=== PATIENT | female | born 1940 | race Caucasian/White ===

== ENCOUNTER → 2017-09-30 | Outpatient (CLI) | payer MEDICARE ==
[~2017-09-30] MED LIST: ASPI325; ASPI325 PO; ATOR10 PO; CITA20 PO; CLOP75 PO; FURO20 PO; HYDACE5 PO; Hair, Skin & N1 EACH PO; LEVFLO500 PO; LISI20 PO; LISI5; META800 PO; METO50ER PO; MONT10T; NAPR220; NIFE30ER PO; OMEP10ER; ONDA4ODT MM; OXYACE5T PO; POTCHL10ER PO
== END | disposition home or self-care (01) ==
LOC: LAB EV 18:36 → LAB SHORT 18:36
DX: N39.0 Urinary tract infection, site not specified (principal)
CPT/HCPCS: 87086

== ENCOUNTER → 2018-12-08 | Outpatient (CLI) | payer MEDICARE, OTHER ==
[2018-12-08 17:49] LABS: BASOPHILS ABSOLUTE AUTO 0.06 K/mm3 (0.00-0.23); BASOPHILS PERCENT AUTO 1 % (0-2); EOSINOPHILS ABSOLUTE AUTO 0.01 K/mm3 (0.00-0.68); EOSINOPHILS PERCENT AUTO 0 % (0-6); Hematocrit 42.2 % (33.0-51.0); Hemoglobin 13.6 g/dL (11.5-16.0); IMMATURE GRAN ABSOLUTE AUTO 0.04 K/mm3 (0.00-0.10); IMMATURE GRAN PERCENT AUTO 1 % (0-1); LYMPHOCYTES ABSOLUTE AUTO 2.91 K/mm3 (0.84-5.20); LYMPHOCYTES PERCENT AUTO 44 % (21-46); MONOCYTES PERCENT AUTO 15 % (4-13); Mean Corpuscular HGB 27.2 pg (26.0-34.0); Mean Corpuscular HGB Conc 32.2 g/dL (31.5-36.5); Mean Corpuscular Volume 84 fL (80-100); Mean Platelet Volume 10.6 fL (9.1-12.4); NEUTROPHILS ABSOLUTE AUTO 2.65 K/mm3 (1.96-9.15); NEUTROPHILS PERCENT AUTO 40 % (41-73); Platelet Count 202 K/mm3 (150-400); RDW Standard Deviation 45.4 fL (35.1-46.3); White Blood Cell Count 6.67 K/mm3 (4.00-11.30)
[2018-12-08 19:43] LABS: Anion Gap 9 mmol/L (6-16); Chloride, Blood 105 mmol/L (98-108); Potassium, Blood 3.7 mmol/L (3.5-5.5); Sodium, Blood 140 mmol/L (136-145)
[2018-12-08 20:06] LABS: Alanine Aminotransfer (ALT/SGP 21 U/L (12-78); Albumin, Blood 3.6 g/dL (3.4-5.0); Albumin/Globulin Ratio 0.8 (0.8-1.8); Alk Phos 87 U/L (40-126); Aspartate Aminotrans (AST/SGOT 21 U/L (12-37); Bilirubin, Total 0.4 mg/dL (0.1-1.0); Blood Urea Nitrogen 13 mg/dL (8-24); Bun/Creatinine Ratio 16.9 (12.0-20.0); CO2, Blood 26 mmol/L (21-32); Calcium, Blood 8.7 mg/dL (8.5-10.1); Creatinine, Blood 0.77 mg/dL (0.40-1.00); Globulin, Blood 4.8 g/dL (2.2-4.0); Glomerular Filtration Rate >60 (60-); Glucose, Blood 89 mg/dL (70-99); Thyroid Stimulating Hormone 1.835 uIU/mL (0.360-4.800); Total Protein, Blood 8.4 g/dL (6.4-8.2)
== END | disposition home or self-care (01) ==
LOC: LAB SHORT 17:42 → LAB EV 17:42
PROVIDERS: Physician Assistant Medical
DX: I48.91 Unspecified atrial fibrillation (principal); I10 Essential (primary) hypertension
CPT/HCPCS: 36415; 80053; 84443; 85025

== ENCOUNTER → 2019-07-03 | Outpatient (CLI) | payer MEDICARE, OTHER ==
[2019-07-03 13:43] LABS: BASOPHILS ABSOLUTE AUTO 0.04 K/mm3 (0.00-0.23); BASOPHILS PERCENT AUTO 1 % (0-2); EOSINOPHILS ABSOLUTE AUTO 0.01 K/mm3 (0.00-0.68); EOSINOPHILS PERCENT AUTO 0 % (0-6); Hematocrit 36.3 % (33.0-51.0); Hemoglobin 11.6 g/dL (11.5-16.0); IMMATURE GRAN ABSOLUTE AUTO 0.04 K/mm3 (0.00-0.10); IMMATURE GRAN PERCENT AUTO 1 % (0-1); LYMPHOCYTES ABSOLUTE AUTO 2.97 K/mm3 (0.84-5.20); LYMPHOCYTES PERCENT AUTO 36 % (21-46); MONOCYTES PERCENT AUTO 17 % (4-13); Mean Corpuscular HGB 26.5 pg (26.0-34.0); Mean Corpuscular Volume 83 fL (80-100); Mean Platelet Volume 9.9 fL (9.1-12.4); NEUTROPHILS ABSOLUTE AUTO 3.69 K/mm3 (1.96-9.15); NEUTROPHILS PERCENT AUTO 45 % (41-73); Platelet Count 282 K/mm3 (150-400); RDW Coefficient Variation 13.3 % (11.7-14.2); RDW Standard Deviation 40.2 fL (35.1-46.3); Red Blood Cell Count 4.37 M/mm3 (3.80-5.20); White Blood Cell Count 8.15 K/mm3 (4.00-11.30)
[2019-07-03 14:03] LABS: Alanine Aminotransfer (ALT/SGP 17 U/L (12-78); Albumin, Blood 2.7 g/dL (3.4-5.0); Albumin/Globulin Ratio 0.5 (0.8-1.8); Alk Phos 86 U/L (40-126); Anion Gap 6 mmol/L (6-16); Aspartate Aminotrans (AST/SGOT 15 U/L (12-37); Bilirubin, Total 0.2 mg/dL (0.1-1.0); Blood Urea Nitrogen 19 mg/dL (8-24); CO2, Blood 26 mmol/L (21-32); Calcium, Blood 8.8 mg/dL (8.5-10.1); Chloride, Blood 105 mmol/L (98-108); Creatinine, Blood 0.76 mg/dL (0.40-1.00); Globulin, Blood 5.8 g/dL (2.2-4.0); Glomerular Filtration Rate >60 (60-); Glucose, Blood 92 mg/dL (70-99); Sodium, Blood 137 mmol/L (136-145); Total Protein, Blood 8.5 g/dL (6.4-8.2)
== END | disposition home or self-care (01) ==
LOC: LAB SHORT 13:38 → LAB EV 13:38
PROVIDERS: Physician Assistant
DX: N10 Acute pyelonephritis (principal)
CPT/HCPCS: 80053; 85025; 87077; 87086; 87186

== ENCOUNTER → 2019-10-20 | Outpatient (CLI) | payer MEDICARE, OTHER | END | disposition home or self-care (01) | LOC: PLD 12:19 → LAB SHORT 12:19 | DX: D22.61 Melanocytic nevi of right upper limb, including shoulder (principal) | CPT/HCPCS: 88305 ==

== ENCOUNTER 2020-07-06 21:23 | Emergency (ER) | payer MEDICARE, OTHER ==
[~2020-07-06] VITALS: Ht 160 cm; Wt 72.6 kg
[2020-07-06] MEDS ORDERED: XARELTO20 M1 PO (21:34)
[2020-07-06] MEDS ORDERED: FUROSEMIDE20 MG PO (21:35)
== END 2020-07-07 00:44 | disposition home or self-care (01) ==
LOC: ER 21:23
DX: S40.011A Contusion of right shoulder, initial encounter (principal); I11.0 Hypertensive heart disease with heart failure; I50.9 Heart failure, unspecified; Z88.5 Allergy status to narcotic agent; Z88.2 Allergy status to sulfonamides; Z88.1 Allergy status to other antibiotic agents; Z79.01 Long term (current) use of anticoagulants; W55.12XA Struck by horse, initial encounter
CPT/HCPCS: 70450; 72125; 73030; 73060; 93005; 93010; 99284-25; A9270; L0160

== ENCOUNTER → 2020-11-16 | Outpatient (CLI) | payer MEDICARE, OTHER ==
[~2020-11-16] MED LIST changes: +FUROSEMIDE20 MG PO; +XARELTO20 M1 PO
== END ==
LOC: LAB SHORT 17:58 → LAB 17:58
DX: L08.9 Local infection of the skin and subcutaneous tissue, unspecified (principal); Z88.5 Allergy status to narcotic agent; Z88.2 Allergy status to sulfonamides; Z88.4 Allergy status to anesthetic agent
CPT/HCPCS: 87070; 87147; 87205

== ENCOUNTER → 2020-11-29 | Outpatient (CLI) | payer MEDICARE, OTHER | LOC: LAB SHORT 13:29 → LAB EV 13:29 | DX: L03.90 Cellulitis, unspecified (principal) | CPT/HCPCS: 87070; 87075; 87077; 87186; 87205 ==

== ENCOUNTER 2021-03-03 13:18 | Inpatient (IN) | payer MEDICARE, OTHER ==
[~2021-03-03] VITALS: Ht 170.2 cm; Wt 68.0 kg
[2021-03-03 13:49] LABS: BASOPHILS ABSOLUTE AUTO 0.05 K/mm3 (0.00-0.23); BASOPHILS PERCENT AUTO 1 % (0-2); EOSINOPHILS PERCENT AUTO 0 % (0-6); Hematocrit 41.1 % (33.0-51.0); Hemoglobin 13.2 g/dL (11.5-16.0); IMMATURE GRAN ABSOLUTE AUTO 0.02 K/mm3 (0.00-0.10); IMMATURE GRAN PERCENT AUTO 0 % (0-1); LYMPHOCYTES ABSOLUTE AUTO 2.04 K/mm3 (0.84-5.20); LYMPHOCYTES PERCENT AUTO 27 % (21-46); MONOCYTES ABSOLUTE AUTO 0.93 K/mm3 (0.16-1.47); MONOCYTES PERCENT AUTO 12 % (4-13); Mean Corpuscular HGB 27.5 pg (26.0-34.0); Mean Corpuscular HGB Conc 32.1 g/dL (31.5-36.5); Mean Corpuscular Volume 86 fL (80-100); Mean Platelet Volume 11.2 fL (9.1-12.4); NEUTROPHILS ABSOLUTE AUTO 4.43 K/mm3 (1.96-9.15); NEUTROPHILS PERCENT AUTO 59 % (41-73); Platelet Count 174 K/mm3 (150-400); RDW Coefficient Variation 14.6 % (11.7-14.2); RDW Standard Deviation 46.5 fL (35.1-46.3); White Blood Cell Count 7.47 K/mm3 (4.00-11.30)
[2021-03-03 14:03] LABS: International Normalized Ratio 1.14; Prothrombin Time Results 11.9 Sec (9.7-11.5)
[2021-03-03 14:15] LABS: Alanine Aminotransfer (ALT/SGP 31 U/L (12-78); Albumin, Blood 3.3 g/dL (3.4-5.0); Albumin/Globulin Ratio 0.6 (0.8-1.8); Alk Phos 87 U/L (50-136); Anion Gap 7 mmol/L (6-16); Aspartate Aminotrans (AST/SGOT 31 U/L (12-37); Bilirubin, Total 0.7 mg/dL (0.1-1.0); Blood Urea Nitrogen 11 mg/dL (8-24); Bun/Creatinine Ratio 19.6 (12.0-20.0); CO2, Blood 24 mmol/L (21-32); Chloride, Blood 108 mmol/L (98-108); Creatinine, Blood 0.56 mg/dL (0.40-1.00); Glomerular Filtration Rate >60 (60-); Glucose, Blood 111 mg/dL (70-99); Potassium, Blood 3.5 mmol/L (3.5-5.5); Sodium, Blood 139 mmol/L (136-145); Total Protein, Blood 9.3 g/dL (6.4-8.2)
[2021-03-03 15:37] LABS: SARS-Cov-2 (COVID-19) PCR, MMC NEGATIVE (NEGATIVE)
[2021-03-04 04:59] LABS: BASOPHILS ABSOLUTE AUTO 0.05 K/mm3 (0.00-0.23); BASOPHILS PERCENT AUTO 1 % (0-2); EOSINOPHILS ABSOLUTE AUTO 0.01 K/mm3 (0.00-0.68); EOSINOPHILS PERCENT AUTO 0 % (0-6); Hematocrit 39.7 % (33.0-51.0); Hemoglobin 12.9 g/dL (11.5-16.0); IMMATURE GRAN ABSOLUTE AUTO 0.01 K/mm3 (0.00-0.10); IMMATURE GRAN PERCENT AUTO 0 % (0-1); LYMPHOCYTES ABSOLUTE AUTO 3.06 K/mm3 (0.84-5.20); LYMPHOCYTES PERCENT AUTO 49 % (21-46); MONOCYTES ABSOLUTE AUTO 1.27 K/mm3 (0.16-1.47); MONOCYTES PERCENT AUTO 20 % (4-13); Mean Corpuscular HGB 27.5 pg (26.0-34.0); Mean Corpuscular HGB Conc 32.5 g/dL (31.5-36.5); Mean Corpuscular Volume 85 fL (80-100); Mean Platelet Volume 10.7 fL (9.1-12.4); NEUTROPHILS ABSOLUTE AUTO 1.88 K/mm3 (1.96-9.15); NEUTROPHILS PERCENT AUTO 30 % (41-73); Platelet Count 171 K/mm3 (150-400); RDW Coefficient Variation 14.7 % (11.7-14.2); RDW Standard Deviation 45.1 fL (35.1-46.3); Red Blood Cell Count 4.69 M/mm3 (3.80-5.20); White Blood Cell Count 6.28 K/mm3 (4.00-11.30)
--- NOTE | 2021-03-04 04:59 | NUR ---
ADMISSION/ CONDUIT INSTALLER SUMMARY PATIENT WAS BROUGHT FROM THE ED AT THE BEGINNING OF THE SHIFT. SHE WAS PLACED ON HER BED. ASSESSMENT DONE AND CHARTED ON THE EMR. SHE IS ABLE TO STATE HER NAME WITH A LITTLE DIFFICULTY. SHE IS ALSO ABLE TO ANSWER FEW QUESTIONS. VITALS SIGNS ARE STABLE. NO SKIN BREAKDOWN. WILL CONTINUE TO MONITOR HER.
[2021-03-04 05:31] LABS: Anion Gap 4 mmol/L (6-16); Blood Urea Nitrogen 11 mg/dL (8-24); Bun/Creatinine Ratio 17.2 (12.0-20.0); CO2, Blood 29 mmol/L (21-32); Calcium, Blood 8.8 mg/dL (8.5-10.1); Chloride, Blood 106 mmol/L (98-108); Creatinine, Blood 0.64 mg/dL (0.40-1.00); Glomerular Filtration Rate >60 (60-); Glucose, Blood 81 mg/dL (70-99); Potassium, Blood 3.3 mmol/L (3.5-5.5); Sodium, Blood 139 mmol/L (136-145)
--- NOTE | 2021-03-04 15:50 | NUR ---
SPOKE TO DR. FALCON BY PHONE, REPORTED THAT MRI RESULTS ARE IN FOR HIS REVIEW. RECEIVED PERMISSION TO CHANGE REMAINING IV KCL REPLACEMENT INFUSIONS TO KCL PO. PROVIDER STATED THAT HE WILL LOOK OVER PT'S OUTPT MEDS AND ORDER APPROPRIATE. POSSIBLE D/C HOME TOMOORROW.
--- NOTE | 2021-03-04 15:52 | NUR ---
SUGGESTED TO PT AND DAUGHTER AARON THAT, SINCE PT LIVES ALONE, SHE MAY BENEFIT FROM A [facility] AL[facility] SO THAT SHE CAN [facility] IF NEEDED INSTEAD OF ATTEMPTING TO WALK TO [facility]. DAUGHTER STATED THEY WERE GOING TO LOOK IN TO IT.
--- NOTE | 2021-03-04 18:17 | NUR ---
SHIFT SUMMARY: NO ACUTE EVENTS. C/O HEADACHE EARLY IN THE DAY, MEDICATED WITH TYLENOL WITH ADEQUATE RELIEF. SPEECH IS STILL A BIT SLOW. PHYSICAL THERAPY WORKED WITH PATIENT THIS MORNING; ABLE TO WALK WITH SBA FOR SAFETY. GETTING UP [place] [facility] [place]/C'D WITHOUT INCIDENT. GOOD APPETITE. POTASSIUM REPLACED WITH IV AND PO.
--- NOTE | 2021-03-05 04:33 | NUR ---
SHIFT SUMMARY PATIENT HAD NO ACUTE CHANGES. AXOX 4 AND ABLE TO COMMUNICATE. VSS/AFEBRILE. DENIES PAIN, SOB, AND N/V. PIV REMAINS INTACT. COOPERATIVE WITH CARE. WATCHING TV FIRST PART OF SHIFT. CALL LIGHT IN REACH. BED IN LOWEST POSITION. WILL CONTINUE TO MONITOR UNTIL DAY SHIFT NURSE ASSUMES CARE.
[2021-03-05 05:38] LABS: Anion Gap 1 mmol/L (6-16); Blood Urea Nitrogen 15 mg/dL (8-24); Bun/Creatinine Ratio 20.9 (12.0-20.0); CO2, Blood 30 mmol/L (21-32); Chloride, Blood 108 mmol/L (98-108); Creatinine, Blood 0.72 mg/dL (0.40-1.00); Glomerular Filtration Rate >60 (60-); Glucose, Blood 86 mg/dL (70-99); Magnesium, Blood 2.1 mg/dL (1.6-2.4); Potassium, Blood 4.9 mmol/L (3.5-5.5); Sodium, Blood 139 mmol/L (136-145)
[2021-03-05] MEDS ORDERED: ASPI81CH PO (10:34)
--- NOTE | 2021-03-05 14:44 | NUR ---
PATIENT DISCHARGED TO HOME ACCOMPANIED BY DAUGHTER ROBER. VERBALIZED UNDERSTANDING OF D/C INSTRUCTIONS. IV SALINE LOCKS REMOVED WITHOUT INCIDENT. OFF UNIT VIA W/C AT 1435. NO BELONGINGS LEFT BEHIND IN ROOM.
== END 2021-03-05 14:42 | disposition home or self-care (01) | DRG 66 ==
LOC: ER 13:18 → ERHOLD 13:19 → MEDS 19:45
PROVIDERS: Emergency Medicine; Physician Assistant; ADMIT Internal Medicine
DX: I63.9 Cerebral infarction, unspecified (principal); E87.6 Hypokalemia; R29.810 Facial weakness; R47.01 Aphasia; Z20.822 Contact with and (suspected) exposure to COVID-19; I11.0 Hypertensive heart disease with heart failure; I50.9 Heart failure, unspecified; Z96.651 Presence of right artificial knee joint; M19.90 Unspecified osteoarthritis, unspecified site; E78.5 Hyperlipidemia, unspecified; I48.91 Unspecified atrial fibrillation; Z28.21 Immunization not carried out because of patient refusal; Z98.890 Other specified postprocedural states; Z86.73 Personal history of transient ischemic attack (TIA), and cerebral infarction without residual deficits; Z88.2 Allergy status to sulfonamides; Z88.5 Allergy status to narcotic agent; Z88.8 Allergy status to other drugs, medicaments and biological substances; Z79.01 Long term (current) use of anticoagulants; Z79.899 Other long term (current) drug therapy
CPT/HCPCS: 36415; 51702; 70450; 70496; 70498; 70553; 80048; 80053; 82947; 83735; 85025; 85610; 85730; 93005; 93010; 96374; 96375; 97112; 97162; 99285-25; A9270; A9579; G0378; J2405; J3010; J3480; J7050; Q9967; U0004

== ENCOUNTER 2021-03-06 11:12 | Emergency (ER) | payer MEDICARE, OTHER ==
[~2021-03-06] VITALS: Ht 160 cm; Wt 70.3 kg
[~2021-03-06 11:12] MED LIST changes: +ASPI81CH PO
== END 2021-03-06 15:35 | disposition home or self-care (01) ==
LOC: ER 11:12
DX: G43.909 Migraine, unspecified, not intractable, without status migrainosus (principal); I11.0 Hypertensive heart disease with heart failure; I50.9 Heart failure, unspecified; Z88.5 Allergy status to narcotic agent; Z88.8 Allergy status to other drugs, medicaments and biological substances; Z88.2 Allergy status to sulfonamides; Z79.899 Other long term (current) drug therapy; Z79.01 Long term (current) use of anticoagulants; Z79.82 Long term (current) use of aspirin; Z86.73 Personal history of transient ischemic attack (TIA), and cerebral infarction without residual deficits
CPT/HCPCS: 70450; 93005; 93010; 99284-25

== ENCOUNTER 2021-07-18 22:56 | Emergency (ER) | payer MEDICARE, OTHER ==
[~2021-07-18] VITALS: Ht 157.5 cm; Wt 80.7 kg
== END 2021-07-19 00:23 | disposition home or self-care (01) ==
LOC: ER 22:56
DX: I11.0 Hypertensive heart disease with heart failure (principal); I50.9 Heart failure, unspecified; Z79.899 Other long term (current) drug therapy; Z88.8 Allergy status to other drugs, medicaments and biological substances
CPT/HCPCS: 99283

== ENCOUNTER 2022-01-03 07:31 | Emergency (ER) | payer OTHER, MEDICARE ==
[~2022-01-03] VITALS: Ht 157.5 cm; Wt 70.3 kg
== END 2022-01-03 10:17 | disposition home or self-care (01) ==
LOC: ER 07:31
DX: S00.211A Abrasion of right eyelid and periocular area, initial encounter (principal); S60.221A Contusion of right hand, initial encounter; W01.0XXA Fall on same level from slipping, tripping and stumbling without subsequent striking against object, initial encounter; I11.0 Hypertensive heart disease with heart failure; I50.9 Heart failure, unspecified; Z88.5 Allergy status to narcotic agent; Z88.2 Allergy status to sulfonamides; Z88.1 Allergy status to other antibiotic agents; Z79.899 Other long term (current) drug therapy
CPT/HCPCS: 70450; 73130; 99284-25; A9270

== ENCOUNTER 2022-01-06 06:01 | Emergency (ER) | payer MEDICARE, OTHER ==
[~2022-01-06] VITALS: Ht 157.5 cm; Wt 70.3 kg
[2022-01-06] MEDS ORDERED: ATOR10 (06:43)
[2022-01-06] MEDS ORDERED: NIFE10 (06:44)
[2022-01-06] MEDS ORDERED: DOXY100 PO (11:01)
== END 2022-01-06 11:39 | disposition home or self-care (01) ==
LOC: ER 06:01
DX: S01.101A Unspecified open wound of right eyelid and periocular area, initial encounter (principal); I11.0 Hypertensive heart disease with heart failure; I50.9 Heart failure, unspecified; Z79.899 Other long term (current) drug therapy; Z79.01 Long term (current) use of anticoagulants; W19.XXXA Unspecified fall, initial encounter
CPT/HCPCS: A9270

== ENCOUNTER 2022-01-24 08:11 | Emergency (ER) | payer MEDICARE, OTHER ==
[~2022-01-24] VITALS: Ht 157.5 cm; Wt 68.0 kg
[~2022-01-24 08:11] MED LIST changes: +ATOR10; +DOXY100 PO; +NIFE10
== END 2022-01-24 09:34 | disposition home or self-care (01) ==
LOC: ER 08:11
DX: M79.661 Pain in right lower leg (principal); I11.0 Hypertensive heart disease with heart failure; I50.9 Heart failure, unspecified; Z88.5 Allergy status to narcotic agent; Z88.8 Allergy status to other drugs, medicaments and biological substances; Z86.73 Personal history of transient ischemic attack (TIA), and cerebral infarction without residual deficits; Z96.651 Presence of right artificial knee joint
CPT/HCPCS: 93971; 99283-25

== ENCOUNTER 2022-02-14 06:13 | Emergency (ER) | payer MEDICARE, OTHER ==
[~2022-02-14] VITALS: Ht 165.1 cm; Wt 77.1 kg
== END 2022-02-14 09:17 | disposition home or self-care (01) ==
LOC: ER 06:13
DX: M25.561 Pain in right knee (principal); M25.461 Effusion, right knee; I11.0 Hypertensive heart disease with heart failure; I50.9 Heart failure, unspecified; Z88.5 Allergy status to narcotic agent; Z88.2 Allergy status to sulfonamides; Z88.1 Allergy status to other antibiotic agents; Z79.899 Other long term (current) drug therapy; Z96.651 Presence of right artificial knee joint
CPT/HCPCS: A9270; J1885

== ENCOUNTER 2024-01-20 20:58 | Inpatient (IN) | payer MEDICARE, OTHER ==
[~2024-01-20] VITALS: Ht 157.5 cm; Wt 61.9 kg
[~2024-01-20 20:58] MED LIST changes: +METO100ER PO; +MORP15ER PO; +OXYC5 PO
[2024-01-20 21:22] LABS: Hemoglobin 16.1 g/dL (11.5-16.0); Mean Corpuscular HGB 23.7 pg (26.0-34.0); Mean Corpuscular HGB Conc 32.2 g/dL (31.5-36.5); Mean Corpuscular Volume 74 fL (80-100); Platelet Count 831 K/mm3 (150-400); RDW Coefficient Variation 18.3 % (11.7-14.2); RDW Standard Deviation 44.7 fL (35.1-46.3)
[2024-01-20 21:35] LABS: BAND PERCENT MAN 1 % (0-8); BASOPHILS PERCENT MAN 0 % (0-2); EOSINOPHILS PERCENT MAN 1 % (0-6); LYMPHOCYTES % ATYPICAL MANUAL 1 % (0-0); LYMPHOCYTES PERCENT MAN 10 % (21-46); MONOCYTES PERCENT MAN 9 % (4-13); SEG NEUTROPHILS PERCENT MAN 78 % (41-73); TOTAL CELLS COUNTED 100
[2024-01-20 21:36] LABS: Albumin, Blood 2.7 g/dL (3.4-5.0); Albumin/Globulin Ratio 0.8 (0.8-1.8); BASOPHILS ABSOLUTE AUTO 0.17 K/mm3 (0.00-0.23); BASOPHILS PERCENT AUTO 1 % (0-2); Bilirubin, Total 0.7 mg/dL (0.1-1.0); Bun/Creatinine Ratio 22.3 (12.0-20.0); Calcium, Blood 8.9 mg/dL (8.5-10.1); Creatinine, Blood 0.54 mg/dL (0.40-1.00); EOSINOPHILS ABSOLUTE AUTO 0.26 K/mm3 (0.00-0.68); EOSINOPHILS PERCENT AUTO 1 % (0-6); Globulin, Blood 3.5 g/dL (2.2-4.0); IMMATURE GRAN ABSOLUTE AUTO 0.37 K/mm3 (0.00-0.10); IMMATURE GRAN PERCENT AUTO 2 % (0-1); LYMPHOCYTES ABSOLUTE AUTO 1.45 K/mm3 (0.84-5.20); LYMPHOCYTES PERCENT AUTO 7 % (21-46); MONOCYTES ABSOLUTE AUTO 1.18 K/mm3 (0.16-1.47); MONOCYTES PERCENT AUTO 6 % (4-13); NEUTROPHILS ABSOLUTE AUTO 16.77 K/mm3 (1.96-9.15); NEUTROPHILS ABSOLUTE MAN 15.95 K/mm3 (1.96-9.15); NEUTROPHILS PERCENT AUTO 83 % (41-73); Total Protein, Blood 6.2 g/dL (6.4-8.2)
[2024-01-20] MEDS ORDERED: Piperacillin/Tazobactam Sod 3.375 GM in NS 100 ML IV ONE (22:45)
[2024-01-20] MEDS ORDERED: Vancomycin HCL 2,000 MG in NS 520 ML IV ONE (22:45)
[2024-01-20] MEDS ORDERED: NS 1,000 ML IV SCH ×2 (22:45→23:55)
[2024-01-20 23:39] LABS: Source, Urine Clean Catch
[2024-01-20 23:41] LABS: Bilirubin, Urine Neg (Neg); Blood, Urine Neg (Neg); Glucose Qualitative, Urine Neg (Neg); Ketones, Urine Neg (Neg); Leukocyte Esterase, Urine Neg (Neg); Nitrite, Urine Neg (Neg); Protein, Urine Neg (Neg); Urobilinogen, Urine NORM (Normal)
[2024-01-20 23:45] LABS: Appearance, Urine Clear (Clear); Color, Urine Yellow (P-Yellow)
[2024-01-21] MEDS ORDERED: ADALAT CC30 M1 PO (01:39)
[2024-01-21] MEDS ORDERED: Metoprolol Succinate 50 MG TABCR PO SCH (01:43)
[2024-01-21] MEDS ORDERED: FLU VACC TS2024-25(6MOS UP)/PF 45 MCG/0.5 ML SYRINGE IM ONE (01:45)
[2024-01-21] MEDS ORDERED: Magnesium Hydroxide Conc 10 ML UDC PO PRN (01:45)
[2024-01-21] MEDS ORDERED: Acetaminophen 325 MG TABLET PO PRN (01:50)
[2024-01-21] MEDS ORDERED: Bisacodyl 10 MG Supp PR PRN (01:50)
[2024-01-21 03:27] VITALS: BP 153/76
[2024-01-21] MEDS ORDERED: Metoprolol Tartrate 1 MG/ML 5 ML VIAL IV PRN (04:25)
[2024-01-21] MEDS ORDERED: Ondansetron 4 MG SoluTab MM PRN (04:25)
--- NOTE | 2024-01-21 04:45 | NUR ---
SUMMARY- PT ARRIVED TO ROOM NAUSEATED. PT FOUND TO HAVE A PULSE RATE REACHING 130'S. PROVIDER CALLED AND HE STATES HE WILL ADD ORDERS. ZOFRAN AND PRN LOPRESSOR WAS ORDERED. PT NAUSEA RESOLVED ON OWN. HRT RATE ON TELE A-FIB @ 98. PT AOX3-4 WITH SOME FORGETFULNESS. PT REPORTS DISCOMFORT IN BLE DUE TO NEUROPATHY. PT 1-2 PERSON ASSIST W/ GB AND FWW. PT WOULD BENEIFIT FROM [facility] FOR GROIN/ JOANNE AREA. NO PRESSURE INJURIES OR REDNESS ON COCCYX. CALL LIGHT IN REACH AND BED ALARM ON FOR SAFETY.
[2024-01-21 06:16] LABS: Hematocrit 47.1 % (33.0-51.0); Hemoglobin 15.3 g/dL (11.5-16.0); Mean Corpuscular HGB Conc 32.5 g/dL (31.5-36.5); Mean Corpuscular Volume 74 fL (80-100); Mean Platelet Volume 11.3 fL (9.1-12.4); Platelet Count 799 K/mm3 (150-400); RDW Coefficient Variation 18.6 % (11.7-14.2); RDW Standard Deviation 44.6 fL (35.1-46.3); Red Blood Cell Count 6.38 M/mm3 (3.80-5.20)
[2024-01-21 06:17] LABS: White Blood Cell Count 22.62 K/mm3 (4.00-11.30)
[2024-01-21 06:25] LABS: BAND PERCENT MAN 7 % (0-8); BASOPHILS ABSOLUTE MAN 0.22 K/mm3 (0.00-0.23); BASOPHILS PERCENT MAN 1 % (0-2); EOSINOPHILS PERCENT MAN 0 % (0-6); LYMPHOCYTES ABSOLUTE MAN 1.35 K/mm3 (0.84-5.20); LYMPHOCYTES PERCENT MAN 6 % (21-46); MONOCYTES ABSOLUTE MAN 1.58 K/mm3 (0.16-1.47); MONOCYTES PERCENT MAN 7 % (4-13); NEUTROPHILS ABSOLUTE MAN 19.45 K/mm3 (1.96-9.15); SEG NEUTROPHILS PERCENT MAN 79 % (41-73); TOTAL CELLS COUNTED 100
[2024-01-21 06:51] LABS: Albumin, Blood 2.6 g/dL (3.4-5.0); Anion Gap 12 mmol/L (3-11); Blood Urea Nitrogen 10 mg/dL (8-24); Bun/Creatinine Ratio 19.8 (12.0-20.0); CO2, Blood 22 mmol/L (21-32); Calcium, Blood 8.6 mg/dL (8.5-10.1); Chloride, Blood 109 mmol/L (98-108); Creatinine, Blood 0.51 mg/dL (0.40-1.00); Glomerular Filtration Rate 93 (60-); Glucose, Blood 115 mg/dL (70-99); Phosphorus, Blood 2.3 mg/dL (2.5-4.9); Potassium, Blood 3.4 mmol/L (3.5-5.5); Sodium, Blood 140 mmol/L (136-145)
[2024-01-21 07:48] VITALS: BP 145/73
[2024-01-21] MEDS ORDERED: Multivitamins/Minerals TAB PO SCH (09:00)
[2024-01-21] MEDS ORDERED: Sennosides 8.6 MG Tab PO SCH (09:00)
[2024-01-21] MEDS ORDERED: Rivaroxaban 10 MG Tab PO SCH (09:00)
[2024-01-21] MEDS ORDERED: Docusate Sodium 100 MG Cap PO SCH (09:00)
[2024-01-21] MEDS ORDERED: Aspirin 81 MG TabEC PO SCH (09:00)
[2024-01-21] MEDS ORDERED: Lisinopril 20 MG Tab PO SCH (09:00)
[2024-01-21] MEDS ORDERED: Lactobacil 2-S.Thermo-Bifido 1 1 Cap PO SCH (09:00)
[2024-01-21] MEDS ORDERED: Furosemide 20 MG Tab PO SCH (09:00)
[2024-01-21] MEDS ORDERED: NIFEdipine 30 MG TabCR PO SCH (09:00)
[2024-01-21] MEDS ORDERED: Ondansetron Odt8 MG MM (15:03)
[2024-01-21] MEDS ORDERED: DEXA4 PO (15:06)
[2024-01-21 15:35] VITALS: BP 110/65
--- NOTE | 2024-01-21 16:52 | NUR ---
VSS, A-Ox2-3 confused at times and disoriented to time and place, denies SOB, states 8 out of 10 pain that was well managed with prn tylenol, ambulates with 1x assist and walker, on RA. Lungs clear, heart regular, bowel sounds normative, contentint of urine. Pt can make some needs known, call ware in hand, bed in lowest position.
[2024-01-21 19:46] VITALS: BP 113/62
[2024-01-21] MEDS ORDERED: Miconazole Nitrate 2% 85 GM PWD TOP SCH (21:00)
[2024-01-21] MEDS ORDERED: Atorvastatin 40 MG Tab PO SCH (21:00)
[2024-01-21 21:30] LABS: Source, Urine Clean Catch
[2024-01-21 21:35] LABS: Bilirubin, Urine Neg (Neg); Blood, Urine 1+ (Neg); Glucose Qualitative, Urine Neg (Neg); Ketones, Urine Neg (Neg); Leukocyte Esterase, Urine 3+ (Neg); Nitrite, Urine Neg (Neg); Protein, Urine 1+ (Neg); Specific Gravity, Urine 1.015 (1.003-1.022); Urobilinogen, Urine NORM (Normal)
[2024-01-21 21:43] LABS: Appearance, Urine Clear (Clear); Bacteria Mod /hpf; Color, Urine Yellow (P-Yellow); Red Blood Cells, Urine 0-2 /hpf (0-2); Squamous Epithelial Cells Not Seen /hpf (Few)
[2024-01-22 03:43] VITALS: BP 133/81
--- NOTE | 2024-01-22 05:30 | NUR ---
sUMMARY- PT REMAINS FORGETFUL AT TIMES BUT REORIENTS EASILY. PT UP TO BEDSIDE COMMODE FOR TOILETING. PT UA SENT TO LAB. PT HAS RESTED WITHOUT MATTHEW. PT CURRENTLY SLEEPING AND BREATHING EASY. CALL LIGHT IN REACH AND BED ALARM ON.
[2024-01-22 06:06] LABS: Hematocrit 46.9 % (33.0-51.0); Hemoglobin 14.9 g/dL (11.5-16.0); Mean Corpuscular HGB 23.4 pg (26.0-34.0); Mean Corpuscular HGB Conc 31.8 g/dL (31.5-36.5); Mean Corpuscular Volume 74 fL (80-100); Mean Platelet Volume 11.5 fL (9.1-12.4); Platelet Count 790 K/mm3 (150-400); RDW Coefficient Variation 18.3 % (11.7-14.2); RDW Standard Deviation 45.3 fL (35.1-46.3); Red Blood Cell Count 6.36 M/mm3 (3.80-5.20)
[2024-01-22 06:07] LABS: White Blood Cell Count 17.38 K/mm3 (4.00-11.30)
[2024-01-22 06:32] LABS: Albumin, Blood 2.4 g/dL (3.4-5.0); Albumin/Globulin Ratio 0.8 (0.8-1.8); Bilirubin, Total 0.6 mg/dL (0.1-1.0); Bun/Creatinine Ratio 22.1 (12.0-20.0); Calcium, Blood 8.5 mg/dL (8.5-10.1); Creatinine, Blood 0.5 mg/dL (0.40-1.00); Globulin, Blood 3.2 g/dL (2.2-4.0); Potassium, Blood 3.5 mmol/L (3.5-5.5); Total Protein, Blood 5.6 g/dL (6.4-8.2)
[2024-01-22 06:41] LABS: BAND PERCENT MAN 9 % (0-8); BASOPHILS ABSOLUTE MAN 0.17 K/mm3 (0.00-0.23); BASOPHILS PERCENT MAN 1 % (0-2); EOSINOPHILS ABSOLUTE MAN 0.34 K/mm3 (0.00-0.68); EOSINOPHILS PERCENT MAN 2 % (0-6); LYMPHOCYTES ABSOLUTE MAN 2.25 K/mm3 (0.84-5.20); LYMPHOCYTES PERCENT MAN 13 % (21-46); MONOCYTES ABSOLUTE MAN 1.04 K/mm3 (0.16-1.47); MONOCYTES PERCENT MAN 6 % (4-13); NEUTROPHILS ABSOLUTE MAN 13.55 K/mm3 (1.96-9.15); SEG NEUTROPHILS PERCENT MAN 69 % (41-73); TOTAL CELLS COUNTED 100
[2024-01-22 07:24] VITALS: BP 132/78
[2024-01-22] MEDS ORDERED: CefTRIAXone Sodium 1,000 MG in NS 100 ML IV SCH (14:14)
[2024-01-22 16:10] VITALS: BP 101/89
--- NOTE | 2024-01-22 18:34 | NUR ---
VSS, A-Ox2-4 intermentintly confused and disorient to place and situation, denies SOB, denies any pain, ambulates with SB assist and walker, on RA. Lung diminished, heart regular, bowel sounds normative, pt can be impulisive at times, bed alarm on at all times, can be incontient at times. Pt can make some needs known, call ware in hand, bed in lowest position.
[2024-01-22 20:08] VITALS: BP 129/75
[2024-01-23 03:49] VITALS: BP 150/88
--- NOTE | 2024-01-23 03:55 | NUR ---
PATIENTS TEMPORAL TEMPERATURE WAS 101.1 AT 0349-ORAL TEMPERATURE TAKEN AND TEMPERATURE IS 98.1. PATIENT IS WARM/COOL TO TOUCH. PATIENT IS AFEBRILE.
--- NOTE | 2024-01-23 04:08 | NUR ---
SHIFT SUMMARY. NO ACUTE CHANGES. PATIENT IS A/OX3-4 WITH CONFUSION. PATIENT IS ABLE TO MAKE HER NEEDS KNOWN. PATIENT CALLED APPROPRIATELY T/O NIGHT. BED EXIT ALARM IS ON FOR PATIENT SAFETY. PATIENT RESTED T/O NIGHT WITH RESPIRATIONS EQUAL AND UNLABORED. PATIENT HAD 2 BM'S THIS SHIFT. PATIENT IS PLEASANT AND COOPERATIVE WITH CARE. PATIENT REPORTS BLE NEUROPATHY FROM CHEMOTHERAPY THAT IS PAINFUL-PATIENT DENIED NEED FOR PAIN INTERVENTIONS. BED IS LOCKED IN THE LOWEST POSITION WITH CALL LIGHT IN REACH. CARE IS ONGOING.
[2024-01-23 05:39] LABS: Hematocrit 47.8 % (33.0-51.0); Hemoglobin 15.5 g/dL (11.5-16.0); Mean Corpuscular HGB 23.7 pg (26.0-34.0); Mean Corpuscular HGB Conc 32.4 g/dL (31.5-36.5); Mean Corpuscular Volume 73 fL (80-100); Mean Platelet Volume 11.1 fL (9.1-12.4); Platelet Count 741 K/mm3 (150-400); RDW Coefficient Variation 18.6 % (11.7-14.2); RDW Standard Deviation 44.7 fL (35.1-46.3); Red Blood Cell Count 6.54 M/mm3 (3.80-5.20)
[2024-01-23 05:50] LABS: Albumin, Blood 2.5 g/dL (3.4-5.0); Albumin/Globulin Ratio 0.7 (0.8-1.8); Bilirubin, Total 0.7 mg/dL (0.1-1.0); Bun/Creatinine Ratio 21.5 (12.0-20.0); Calcium, Blood 8.7 mg/dL (8.5-10.1); Creatinine, Blood 0.47 mg/dL (0.40-1.00); Globulin, Blood 3.5 g/dL (2.2-4.0); Potassium, Blood 3.2 mmol/L (3.5-5.5)
[2024-01-23 05:51] LABS: BASOPHILS ABSOLUTE MAN 0.17 K/mm3 (0.00-0.23); BASOPHILS PERCENT MAN 1 % (0-2); EOSINOPHILS ABSOLUTE MAN 0.35 K/mm3 (0.00-0.68); EOSINOPHILS PERCENT MAN 2 % (0-6); LYMPHOCYTES ABSOLUTE MAN 1.78 K/mm3 (0.84-5.20); LYMPHOCYTES PERCENT MAN 10 % (21-46); MONOCYTES ABSOLUTE MAN 0.89 K/mm3 (0.16-1.47); MONOCYTES PERCENT MAN 5 % (4-13); NEUTROPHILS ABSOLUTE MAN 14.59 K/mm3 (1.96-9.15); SEG NEUTROPHILS PERCENT MAN 82 % (41-73); TOTAL CELLS COUNTED 100
[2024-01-23 07:04] VITALS: BP 148/80
[2024-01-23] MEDS ORDERED: Rivaroxaban 10 MG Tab PO SCH (09:00)
[2024-01-23 14:33] VITALS: BP 132/81
[2024-01-23 19:08] VITALS: BP 135/71
[2024-01-24 03:43] VITALS: BP 144/88
--- NOTE | 2024-01-24 04:13 | NUR ---
SHIFT SUMMARY. NO ACUTE CHANGES. PATIENT IS A&OX4. PATIENT IS PLEASANT AND COOPERATIVE WITH CARE. PATIENT HAS TELE ON WITH LEADS IN PLACE-NO EVENTS NOTED THIS SHIFT AT THIS TIME. PATIENT WATCHINH TV AT BEGINNING OF SHIFT. PATIENT RESTING OFF AND ON T/O SHIFT WITH RESPIRATIONS EQUAL AND UNLABORED. BED IS LOCKED IN THE LOWEST POSITION [facility] CALL LIGHT IN REACH. CARE IS ONGOING.
[2024-01-24 06:49] LABS: Hematocrit 49.2 % (33.0-51.0); Hemoglobin 15.9 g/dL (11.5-16.0); Mean Corpuscular HGB 23.5 pg (26.0-34.0); Mean Corpuscular HGB Conc 32.3 g/dL (31.5-36.5); Mean Corpuscular Volume 73 fL (80-100); Mean Platelet Volume 11.3 fL (9.1-12.4); Platelet Count 739 K/mm3 (150-400); RDW Coefficient Variation 18.6 % (11.7-14.2); RDW Standard Deviation 43.6 fL (35.1-46.3); Red Blood Cell Count 6.78 M/mm3 (3.80-5.20); White Blood Cell Count 17.61 K/mm3 (4.00-11.30)
[2024-01-24 07:03] VITALS: BP 139/71
[2024-01-24 07:08] LABS: BASOPHILS ABSOLUTE MAN 0.17 K/mm3 (0.00-0.23); BASOPHILS PERCENT MAN 1 % (0-2); EOSINOPHILS ABSOLUTE MAN 0.52 K/mm3 (0.00-0.68); EOSINOPHILS PERCENT MAN 3 % (0-6); LYMPHOCYTES PERCENT MAN 8 % (21-46); MONOCYTES ABSOLUTE MAN 0.88 K/mm3 (0.16-1.47); MONOCYTES PERCENT MAN 5 % (4-13); NEUTROPHILS ABSOLUTE MAN 14.61 K/mm3 (1.96-9.15); SEG NEUTROPHILS PERCENT MAN 83 % (41-73); TOTAL CELLS COUNTED 100
[2024-01-24 07:15] LABS: Albumin, Blood 2.4 g/dL (3.4-5.0); Albumin/Globulin Ratio 0.7 (0.8-1.8); Bilirubin, Total 0.7 mg/dL (0.1-1.0); Bun/Creatinine Ratio 21.3 (12.0-20.0); Calcium, Blood 8.7 mg/dL (8.5-10.1); Creatinine, Blood 0.47 mg/dL (0.40-1.00); Globulin, Blood 3.5 g/dL (2.2-4.0); Potassium, Blood 3.2 mmol/L (3.5-5.5); Total Protein, Blood 5.9 g/dL (6.4-8.2)
[2024-01-24] MEDS ORDERED: Potassium Chloride 20 MEQ TabCR PO ONE (09:15)
[2024-01-24] MEDS ORDERED: NS 250 ML IV PRN (09:55)
[2024-01-24 14:34] VITALS: BP 112/57
--- NOTE | 2024-01-24 18:13 | NUR ---
SHIFT SUMMARY PT A&OX4 W/ NO EPSIODES OF CONFUSION, VSS, AMB W/ SBA, TOLERATING PO, VOIDING, AND PAIN MANAGED PER EMAR. K LAB 3.2 THIS AM AND ORAL K GIVEN. PT ENCOURAGED TO AMB AND WORKED W/ PHYSICAL THERAPY THIS SHIFT, SEE THERAPY NOTE. CHEST XRAY COMPLETED, SEE IMAGING. NO OTHER ACUTE CHANGES. CALL LIGHT WITHIN REACH AND PT ABLE TO MAKE NEEDS KNOWN.
[2024-01-24 19:49] VITALS: BP 132/84
[2024-01-25 02:38] VITALS: BP 135/79
--- NOTE | 2024-01-25 04:34 | NUR ---
SHIFT SUMMARY. NO ACUTE CHANGES. PATIENT A&OX4-PATIENT CALLS APPRORPRIATELY AND IS ABLE TO MAKE HIS NEEDS KNOWN. PATIENT MAKES HER NEEDS KNOWN. PATIENT RESTING OFF AND ON T/O SHIFT WITH RESPIRATIONS EQUAL AND UNLABORED. PATIENT HAS TELE ON WITH LEADS IN PLACE-NO EVENTS NOTED AT THIS TIME. PATIENT IS HOPING TO DISCHARGE HOME SOON-PATIENT WOULD LIKE TO GO HOME 01/25/24 OR "BEFORE THE 15 BECAUSE I HAVE CHEMOTHERAPY". BED IS LOCKED IN THE LOWEST POSITION WITH CALL LIGHT IN REACH. CARE IS ONGOING.
[2024-01-25 06:33] LABS: Hematocrit 48.7 % (33.0-51.0); Hemoglobin 15.5 g/dL (11.5-16.0); Mean Corpuscular HGB Conc 31.8 g/dL (31.5-36.5); Mean Corpuscular Volume 72 fL (80-100); Mean Platelet Volume 11.3 fL (9.1-12.4); Platelet Count 737 K/mm3 (150-400); RDW Coefficient Variation 18.5 % (11.7-14.2); RDW Standard Deviation 44.1 fL (35.1-46.3); Red Blood Cell Count 6.73 M/mm3 (3.80-5.20)
[2024-01-25 06:35] LABS: White Blood Cell Count 14.06 K/mm3 (4.00-11.30)
[2024-01-25 06:50] LABS: BAND PERCENT MAN 1 % (0-8); BASOPHILS ABSOLUTE MAN 0.56 K/mm3 (0.00-0.23); BASOPHILS PERCENT MAN 4 % (0-2); EOSINOPHILS ABSOLUTE MAN 0.28 K/mm3 (0.00-0.68); EOSINOPHILS PERCENT MAN 2 % (0-6); LYMPHOCYTES % ATYPICAL MANUAL 1 % (0-0); LYMPHOCYTES ABSOLUTE MAN 2.24 K/mm3 (0.84-5.20); LYMPHOCYTES PERCENT MAN 15 % (21-46); MONOCYTES ABSOLUTE MAN 0.98 K/mm3 (0.16-1.47); MONOCYTES PERCENT MAN 7 % (4-13); MYELOCYTE ABSOLUTE MAN 0.14 K/mm3 (0.00-0.00); MYELOCYTE PERCENT MAN 1 % (0-0); NEUTROPHILS ABSOLUTE MAN 9.84 K/mm3 (1.96-9.15); SEG NEUTROPHILS PERCENT MAN 69 % (41-73); TOTAL CELLS COUNTED 100
[2024-01-25 07:06] LABS: Bun/Creatinine Ratio 22.8 (12.0-20.0); Calcium, Blood 8.6 mg/dL (8.5-10.1); Creatinine, Blood 0.53 mg/dL (0.40-1.00); Potassium, Blood 3.3 mmol/L (3.5-5.5)
[2024-01-25 07:09] VITALS: BP 126/78
[2024-01-25] MEDS ORDERED: Potassium Chloride 20 MEQ TabCR PO ONE (08:35)
[2024-01-25] MEDS ORDERED: Rivaroxaban 10 MG Tab PO SCH (09:00)
[2024-01-25 14:02] VITALS: BP 141/84
--- NOTE | 2024-01-25 18:17 | NUR ---
SHIFT SUMMARY PT HAD INTERMITTENT CONFUSION T/O SHIFT THAT REQUIRED REORIENTATION, BUT EASILY REDIRECTABLE. NO OTHER ACUTE CHANGES. CALL LIGHT WITHIN REACH AND PT ABLE TO MAKE NEEDS KNOWN.
[2024-01-25 19:17] VITALS: BP 115/79
[2024-01-26 03:49] VITALS: BP 124/73
--- NOTE | 2024-01-26 04:35 | NUR ---
SHIFT SUMMARY SLEPT IN LONG INTERVALS TONIGHT. DID NOT REQUIRE ANY PRN MEDS. LOW GRADE TEMP. TELE A FLUTTER 90-100, WITH SHORT RUNS TO 150'S
[2024-01-26 05:43] LABS: Hematocrit 47.8 % (33.0-51.0); Mean Corpuscular HGB Conc 31.4 g/dL (31.5-36.5); Mean Corpuscular Volume 73 fL (80-100); Mean Platelet Volume 11.4 fL (9.1-12.4); Platelet Count 785 K/mm3 (150-400); RDW Coefficient Variation 18.3 % (11.7-14.2); RDW Standard Deviation 45.1 fL (35.1-46.3); Red Blood Cell Count 6.51 M/mm3 (3.80-5.20)
[2024-01-26 05:44] LABS: White Blood Cell Count 15.72 K/mm3 (4.00-11.30)
[2024-01-26 06:16] LABS: BAND PERCENT MAN 5 % (0-8); BASOPHILS PERCENT MAN 0 % (0-2); EOSINOPHILS ABSOLUTE MAN 0.31 K/mm3 (0.00-0.68); EOSINOPHILS PERCENT MAN 2 % (0-6); LYMPHOCYTES % ATYPICAL MANUAL 1 % (0-0); LYMPHOCYTES ABSOLUTE MAN 1.57 K/mm3 (0.84-5.20); LYMPHOCYTES PERCENT MAN 9 % (21-46); MONOCYTES ABSOLUTE MAN 0.15 K/mm3 (0.16-1.47); MONOCYTES PERCENT MAN 1 % (4-13); MYELOCYTE ABSOLUTE MAN 0.31 K/mm3 (0.00-0.00); MYELOCYTE PERCENT MAN 2 % (0-0); NEUTROPHILS ABSOLUTE MAN 13.36 K/mm3 (1.96-9.15); SEG NEUTROPHILS PERCENT MAN 80 % (41-73); TOTAL CELLS COUNTED 100
[2024-01-26 06:30] LABS: Bun/Creatinine Ratio 26.9 (12.0-20.0); Calcium, Blood 8.7 mg/dL (8.5-10.1); Creatinine, Blood 0.48 mg/dL (0.40-1.00); Potassium, Blood 3.9 mmol/L (3.5-5.5)
[2024-01-26 07:36] VITALS: BP 127/89
--- NOTE | 2024-01-26 07:48 | NUR ---
PT O2 SAT 85% ON RA DURING AM VITALS. PT C/O SOB AND WAS ENCOURAGED TO DEEP BREATHE AND THE HOB WAS PLACED UP. PT PUT ON 3L O2 NC TO MAINTAIN O2 SATS OVER 90%. PT CURRENTLY 93% AND SOB IMPROVED.
[2024-01-26] MEDS ORDERED: Furosemide 10 MG/ML 4ML Vial IV SCH (11:00)
[2024-01-26 11:31] VITALS: BP 130/80
[2024-01-26 14:14] VITALS: BP 138/71
--- NOTE | 2024-01-26 17:41 | NUR ---
SHIFT SUMMARY PT A&OX4 W/ CONT CONFUSION AT TIMES. PT ON 1L O2 NC TO MAINTAIN SATS. NO OTHER ACUTE CHANGES. CALL LIGHT WITHIN REACH AND PT ABLE TO MAKE NEEDS KNOWN.
--- NOTE | 2024-01-26 18:40 | NUR ---
THIS NURSE AMB W/ PT TO THE HALLWAY FROM HER ROOM. PT DID NOT TOLERATE IT WELL. PT ASSISTED BACK TO BED W/ HOB AND BLE'S ELEVATED ON PILLOWS. CALL LIGHT PLACED WITHIN REACH.
[2024-01-26 19:36] VITALS: BP 119/69
[2024-01-27 03:46] VITALS: BP 138/88
--- NOTE | 2024-01-27 04:58 | NUR ---
SHIFT SUMMARY SLEPT IN LONG INTERVALS GIVEN TYLENOL FOR LOW GRADE TEMP.UP TO BSC WITH 2 ASSIST, VERY WEAK AND DECONTIONED. TELE AF 80.
[2024-01-27 06:09] LABS: Hematocrit 51.2 % (33.0-51.0); Mean Corpuscular HGB Conc 31.3 g/dL (31.5-36.5); Mean Corpuscular Volume 74 fL (80-100); Mean Platelet Volume 11.1 fL (9.1-12.4); Platelet Count 799 K/mm3 (150-400); RDW Coefficient Variation 18.6 % (11.7-14.2); RDW Standard Deviation 45.1 fL (35.1-46.3); Red Blood Cell Count 6.96 M/mm3 (3.80-5.20)
[2024-01-27 06:26] LABS: Bun/Creatinine Ratio 31.1 (12.0-20.0); Calcium, Blood 8.9 mg/dL (8.5-10.1); Creatinine, Blood 0.52 mg/dL (0.40-1.00); Potassium, Blood 4.1 mmol/L (3.5-5.5)
[2024-01-27 06:35] LABS: White Blood Cell Count 20.54 K/mm3 (4.00-11.30)
[2024-01-27 06:36] LABS: BAND PERCENT MAN 4 % (0-8); BASOPHILS ABSOLUTE MAN 0.41 K/mm3 (0.00-0.23); BASOPHILS PERCENT MAN 2 % (0-2); EOSINOPHILS ABSOLUTE MAN 0.82 K/mm3 (0.00-0.68); EOSINOPHILS PERCENT MAN 4 % (0-6); LYMPHOCYTES ABSOLUTE MAN 1.43 K/mm3 (0.84-5.20); LYMPHOCYTES PERCENT MAN 7 % (21-46); MONOCYTES ABSOLUTE MAN 0.82 K/mm3 (0.16-1.47); MONOCYTES PERCENT MAN 4 % (4-13); MYELOCYTE PERCENT MAN 1 % (0-0); NEUTROPHILS ABSOLUTE MAN 16.84 K/mm3 (1.96-9.15); SEG NEUTROPHILS PERCENT MAN 78 % (41-73); TOTAL CELLS COUNTED 100
[2024-01-27 07:18] VITALS: BP 136/71
[2024-01-27] MEDS ORDERED: Gabapentin 100 MG Cap PO SCH ×2 (12:00→21:00)
[2024-01-27] MEDS ORDERED: Piperacillin/Tazobactam Sod 2.25 GM in NS 50 ML IV SCH (12:00)
[2024-01-27 16:14] VITALS: BP 120/74
--- NOTE | 2024-01-27 18:01 | NUR ---
PT PLEASANT AND COOP TODAY. NEW ABX STARTED TODAY. DID C/O LEG PAIN THIS AM. MISSING GABAPENTIN. FAMILY BROUGHT IN HOME MED FOR DOSE. APPROVED. NOW ON EMAR. CONTINUES IN AFIB. NO NEW CONCERNS NOTED TODAY. BED IN LOW POSITION, CALL LITE IN REACH, CALLS APPROP
[2024-01-27 19:26] VITALS: BP 118/63
[2024-01-28 04:01] VITALS: BP 120/74
--- NOTE | 2024-01-28 05:18 | NUR ---
SHIFT SUMMARY PATIENT SLET IN LONG INTERVALS. SHE BROKE OUT INTO A SWEAT AND NEEDED HER CLOTHES AND LINEN CHANGED. TELE A FIB. @ 85. LOW GARDE TEMP AGAIN TONIGHT.
[2024-01-28 06:11] LABS: Mean Corpuscular HGB 23.1 pg (26.0-34.0); Mean Corpuscular HGB Conc 30.9 g/dL (31.5-36.5); Mean Corpuscular Volume 75 fL (80-100); Mean Platelet Volume 11.8 fL (9.1-12.4); Platelet Count 918 K/mm3 (150-400); RDW Coefficient Variation 19.2 % (11.7-14.2); RDW Standard Deviation 45.5 fL (35.1-46.3); Red Blood Cell Count 7.36 M/mm3 (3.80-5.20)
[2024-01-28 06:12] LABS: Hematocrit 55.1 % (33.0-51.0); White Blood Cell Count 19.31 K/mm3 (4.00-11.30)
[2024-01-28 06:39] LABS: Bun/Creatinine Ratio 26.8 (12.0-20.0); Calcium, Blood 9.4 mg/dL (8.5-10.1); Creatinine, Blood 0.6 mg/dL (0.40-1.00); Potassium, Blood 3.6 mmol/L (3.5-5.5)
[2024-01-28 07:05] LABS: BASOPHILS ABSOLUTE MAN 0.19 K/mm3 (0.00-0.23); BASOPHILS PERCENT MAN 1 % (0-2); EOSINOPHILS ABSOLUTE MAN 0.38 K/mm3 (0.00-0.68); EOSINOPHILS PERCENT MAN 2 % (0-6); LYMPHOCYTES ABSOLUTE MAN 2.51 K/mm3 (0.84-5.20); LYMPHOCYTES PERCENT MAN 13 % (21-46); MONOCYTES ABSOLUTE MAN 0.57 K/mm3 (0.16-1.47); MONOCYTES PERCENT MAN 3 % (4-13); NEUTROPHILS ABSOLUTE MAN 15.64 K/mm3 (1.96-9.15); SEG NEUTROPHILS PERCENT MAN 81 % (41-73); TOTAL CELLS COUNTED 100
[2024-01-28 07:27] VITALS: BP 122/61
[2024-01-28 17:04] VITALS: BP 118/72
--- NOTE | 2024-01-28 17:36 | NUR ---
SHIFT SUMMARY: PT AOX4 WITH SPOUTS OF CONFUSION. NEEDED SUPPOSITORY AND STOOL SOFTENERS TO AID BOWEL MOVEMENT. ASSISTED TO BATHROOM TO HAVE BM. HAD EPISODE OF CONFUSION AND SOME WAXING AND WANING TACHYCARDIA PER [employer] HYPERION CONSULTANT RUNNING IN THE 130S FOR A FEW MINUTES AND THEN RETURNING TO BASELINE. PT IN PLEASANT AFFECT AND GOOD MOOD. PT RESTING IN BED, BED IN LOWEST POSITION, CALL LIGHT IN REACH. CONTINUING CARE.
[2024-01-28 21:02] VITALS: BP 110/58
[2024-01-29 05:22] VITALS: BP 125/75
[2024-01-29 06:09] LABS: Hematocrit 50.2 % (33.0-51.0); Hemoglobin 15.7 g/dL (11.5-16.0); Mean Corpuscular HGB 22.9 pg (26.0-34.0); Mean Corpuscular HGB Conc 31.3 g/dL (31.5-36.5); Mean Corpuscular Volume 73 fL (80-100); Mean Platelet Volume 11.6 fL (9.1-12.4); Platelet Count 827 K/mm3 (150-400); RDW Coefficient Variation 18.7 % (11.7-14.2); Red Blood Cell Count 6.86 M/mm3 (3.80-5.20)
[2024-01-29 06:13] LABS: White Blood Cell Count 23.49 K/mm3 (4.00-11.30)
--- NOTE | 2024-01-29 06:28 | NUR ---
SHIFT SUMMARY SLEPT WELL, LOW GRADE TEMP PERSISTS, BUT DIAPHORESIS WAS MUCH LESS IN RESPONSE TO THE PRN TYLENOL. A FIB. @ 70
[2024-01-29 06:30] LABS: Bun/Creatinine Ratio 32.8 (12.0-20.0); Calcium, Blood 8.9 mg/dL (8.5-10.1); Creatinine, Blood 0.58 mg/dL (0.40-1.00); Potassium, Blood 3.3 mmol/L (3.5-5.5)
[2024-01-29 06:59] LABS: BASOPHILS ABSOLUTE MAN 0.23 K/mm3 (0.00-0.23); BASOPHILS PERCENT MAN 1 % (0-2); EOSINOPHILS ABSOLUTE MAN 0.46 K/mm3 (0.00-0.68); EOSINOPHILS PERCENT MAN 2 % (0-6); LYMPHOCYTES ABSOLUTE MAN 1.64 K/mm3 (0.84-5.20); LYMPHOCYTES PERCENT MAN 7 % (21-46); MONOCYTES PERCENT MAN 3 % (4-13); NEUTROPHILS ABSOLUTE MAN 20.43 K/mm3 (1.96-9.15); SEG NEUTROPHILS PERCENT MAN 87 % (41-73); TOTAL CELLS COUNTED 100
[2024-01-29 07:18] VITALS: BP 114/65
[2024-01-29] MEDS ORDERED: Potassium Chloride 20 MEQ TabCR PO ONE (08:45)
[2024-01-29] MEDS ORDERED: Furosemide 40 MG Tab PO SCH (09:00)
[2024-01-29] MEDS ORDERED: Piperacillin/Tazobactam Sod 3.375 GM in NS 100 ML IV SCH (12:00)
[2024-01-29 16:05] VITALS: BP 117/66
--- NOTE | 2024-01-29 16:48 | NUR ---
SHIFT SUMMARY: PT AOX4 NO NOTICIBLE BOUTS OF CONFUSION. PT AMBULATED TO THE BATHROOM AND INTO RECLINER FOR LUNCH AND HAS BEEN SITTING PLESANTLY SINCE. LUNG SOUNDS DIMINISHED BUT DENIES CHEST PAIN OR TROUBLE BREATHING. DRANK SOME ENSURES AND DENIES DISCOMFORT. OFF OXYGEN CURRENTLY AND SATTING OKAY.PT RESTING IN RECLINER, CALL LIGHT IN REACH. CONTINUING CARE.
--- NOTE | 2024-01-29 17:19 | NUR ---
TODAY PT HAD SOME MILD RECTAL BLEEDING LOOKS LIKE HEMRRHIOD RELATED. PT DID HAVE A REALLY HARD LARGE STOOL YESTERDAY AND BLOOD WAS NOTED AROUND RECTAL AREA. WILL CONTINUE TO MONITOR.
--- NOTE | 2024-01-29 18:09 | NUR ---
THIS TAILER IN HAS REVIEWED AND AGREES WITH ALL NOTES AND ASSESSMENTS BY CASSI ALVARADO.
[2024-01-29 19:32] VITALS: BP 104/53
[2024-01-30 02:40] VITALS: BP 93/56
--- NOTE | 2024-01-30 04:07 | NUR ---
SHIFT SUMMARY PATIENT HAS BEEN DIAPHORETIC TONIGHT. ESPECIALLY AFTER PRN TYLENOL. TEMPS HAVE BEEN WNL. LOW BPS TONIGHT. TELE A FIB. AT 94.
[2024-01-30 06:15] LABS: Hematocrit 50.7 % (33.0-51.0); Hemoglobin 15.8 g/dL (11.5-16.0); Mean Corpuscular HGB 22.9 pg (26.0-34.0); Mean Corpuscular HGB Conc 31.2 g/dL (31.5-36.5); Mean Corpuscular Volume 74 fL (80-100); Platelet Count 844 K/mm3 (150-400); RDW Coefficient Variation 18.6 % (11.7-14.2); RDW Standard Deviation 45.4 fL (35.1-46.3); Red Blood Cell Count 6.89 M/mm3 (3.80-5.20)
[2024-01-30 07:12] VITALS: BP 113/62
[2024-01-30 07:19] LABS: BASOPHILS ABSOLUTE AUTO 0.21 K/mm3 (0.00-0.23); BASOPHILS PERCENT AUTO 1 % (0-2); EOSINOPHILS PERCENT AUTO 4 % (0-6); IMMATURE GRAN ABSOLUTE AUTO 0.49 K/mm3 (0.00-0.10); IMMATURE GRAN PERCENT AUTO 3 % (0-1); LYMPHOCYTES ABSOLUTE AUTO 2.03 K/mm3 (0.84-5.20); LYMPHOCYTES PERCENT AUTO 12 % (21-46); MONOCYTES ABSOLUTE AUTO 0.75 K/mm3 (0.16-1.47); MONOCYTES PERCENT AUTO 5 % (4-13); NEUTROPHILS ABSOLUTE AUTO 12.71 K/mm3 (1.96-9.15); NEUTROPHILS PERCENT AUTO 76 % (41-73); White Blood Cell Count 16.79 K/mm3 (4.00-11.30)
[2024-01-30] MEDS ORDERED: Acetaminophen325 M1 PO (12:09)
[2024-01-30] MEDS ORDERED: GABA100 PO ×2 (12:12)
[2024-01-30] MEDS ORDERED: AMOCLA875 PO (12:13)
[2024-01-30] MEDS ORDERED: MICONAZOLE NITR85 GM TOP (12:13)
[2024-01-30] MEDS ORDERED: VISBIOME 112.51 EACH PO (12:13)
[2024-01-30 14:58] VITALS: BP 111/66
== END 2024-01-30 15:43 | disposition home health service (06) | DRG 291 ==
LOC: ER 20:58 → MEDS 20:59
PROVIDERS: Family Medicine; Student in an Organized Health Care Education/Training Program; ADMIT Internal Medicine
DX: I11.0 Hypertensive heart disease with heart failure (principal); G92.8 Other toxic encephalopathy; I50.33 Acute on chronic diastolic (congestive) heart failure; J96.01 Acute respiratory failure with hypoxia; J18.9 Pneumonia, unspecified organism; C90.00 Multiple myeloma not having achieved remission; Z66 Do not resuscitate; I48.91 Unspecified atrial fibrillation; Z86.73 Personal history of transient ischemic attack (TIA), and cerebral infarction without residual deficits; Z88.6 Allergy status to analgesic agent; Z88.5 Allergy status to narcotic agent; Z88.1 Allergy status to other antibiotic agents; Z88.2 Allergy status to sulfonamides; Z79.01 Long term (current) use of anticoagulants; Z79.899 Other long term (current) drug therapy
CPT/HCPCS: 36415; 51701; 70450; 71045; 71046; 74177; 80048; 80053; 80069; 81001; 81003; 83605; 83690; 83735; 83880; 84145; 84484; 85025; 87040; 87086; 93005; 93010; 93306; 94760; 94761; 96365-59; 96366; 96367; 96376; 97110; 97116; 97161; 97165; 97530; 99285-25; A9270; G0378; J0696; J1940; J2543; J3370; J7030; J7040; J7050; Q9967

== ENCOUNTER 2024-02-06 13:00 | Inpatient (IN) | payer MEDICARE ==
[~2024-02-06] VITALS: Ht 157.5 cm; Wt 69.5 kg
[~2024-02-06 13:00] MED LIST changes: +ADALAT CC30 M1 PO; +AMOCLA875 PO; +Acetaminophen325 M1 PO; +DEXA4 PO; +GABA100 PO; +MICONAZOLE NITR85 GM TOP; +Ondansetron Odt8 MG MM; +VISBIOME 112.51 EACH PO
[2024-02-06 13:39] LABS: Hematocrit 50.5 % (33.0-51.0); Hemoglobin 15.5 g/dL (11.5-16.0); Mean Corpuscular HGB 22.5 pg (26.0-34.0); Mean Corpuscular HGB Conc 30.7 g/dL (31.5-36.5); Mean Corpuscular Volume 73 fL (80-100); Platelet Count 908 K/mm3 (150-400); RDW Standard Deviation 45.3 fL (35.1-46.3); Red Blood Cell Count 6.88 M/mm3 (3.80-5.20)
[2024-02-06 13:42] LABS: White Blood Cell Count 15.44 K/mm3 (4.00-11.30)
[2024-02-06 14:07] LABS: BASOPHILS ABSOLUTE MAN 0.15 K/mm3 (0.00-0.23); BASOPHILS PERCENT MAN 1 % (0-2); EOSINOPHILS ABSOLUTE MAN 0.46 K/mm3 (0.00-0.68); EOSINOPHILS PERCENT MAN 3 % (0-6); LYMPHOCYTES ABSOLUTE MAN 2.93 K/mm3 (0.84-5.20); LYMPHOCYTES PERCENT MAN 19 % (21-46); MONOCYTES ABSOLUTE MAN 0.92 K/mm3 (0.16-1.47); MONOCYTES PERCENT MAN 6 % (4-13); NEUTROPHILS ABSOLUTE MAN 10.96 K/mm3 (1.96-9.15); SEG NEUTROPHILS PERCENT MAN 71 % (41-73); TOTAL CELLS COUNTED 100
[2024-02-06 14:21] LABS: Albumin, Blood 2.2 g/dL (3.4-5.0); Albumin/Globulin Ratio 0.6 (0.8-1.8); Bilirubin, Total 0.4 mg/dL (0.1-1.0); Calcium, Blood 9.1 mg/dL (8.5-10.1); Creatinine, Blood 0.65 mg/dL (0.40-1.00); Potassium, Blood 4.5 mmol/L (3.5-5.5); Total Protein, Blood 6.2 g/dL (6.4-8.2)
[2024-02-06] MEDS ORDERED: Cefepime HCl 1,000 MG in NS 100 ML IV ONE (14:55)
[2024-02-06] MEDS ORDERED: NS 1,000 ML IV SCH (14:55)
[2024-02-06] MEDS ORDERED: Vancomycin HCL 2,000 MG in NS 520 ML IV ONE (15:45)
[2024-02-06] MEDS ORDERED: Ondansetron 4 MG TAB PO PRN (18:15)
[2024-02-06] MEDS ORDERED: Magnesium Hydroxide Conc 10 ML UDC PO PRN (18:15)
[2024-02-06] MEDS ORDERED: Ondansetron HCl 2 MG / ML 2ML Vial IV PRN (18:15)
[2024-02-06] MEDS ORDERED: Bisacodyl 10 MG Supp PR PRN (18:15)
[2024-02-06] MEDS ORDERED: Zolpidem Tartrate 5 MG Tab PO PRN (18:15)
[2024-02-06] MEDS ORDERED: Rivaroxaban 10 MG Tab PO SCH (18:40)
[2024-02-06] MEDS ORDERED: Metoprolol Tartrate 50 MG Tab PO SCH (19:00)
[2024-02-06] MEDS ORDERED: Furosemide 10 MG / ML 2ML Vial IV SCH (19:00)
[2024-02-06 19:08] LABS: Influenza A, PCR NEGATIVE (NEGATIVE); Influenza B, PCR NEGATIVE (NEGATIVE); Resp Syncytial Virus, PCR NEGATIVE (NEGATIVE); SARS-Cov-2 (COVID-19) PCR, MMC NEGATIVE (NEGATIVE)
[2024-02-06 20:17] LABS: Source, Urine Clean Catch
[2024-02-06 20:27] LABS: Appearance, Urine Clear (Clear); Bilirubin, Urine Neg (Neg); Blood, Urine Neg (Neg); Color, Urine Yellow (P-Yellow); Glucose Qualitative, Urine Neg (Neg); Ketones, Urine Neg (Neg); Leukocyte Esterase, Urine 1+ (Neg); Nitrite, Urine Neg (Neg); Protein, Urine Neg (Neg); Urobilinogen, Urine NORM (Normal); pH, Urine 6.5 (5.0-8.0)
[2024-02-06] MEDS ORDERED: FLU VACC TS2024-25(6MOS UP)/PF 45 MCG/0.5 ML SYRINGE IM ONE (20:37)
[2024-02-06 20:47] LABS: Bacteria Mod /hpf; Red Blood Cells, Urine 0-2 /hpf (0-2); Squamous Epithelial Cells Few /hpf (Few); White Blood Cells, Urine 0-2 /hpf (0-5)
[2024-02-06 21:29] VITALS: BP 146/105
[2024-02-07] MEDS ORDERED: Cefepime HCl 2,000 MG in NS 100 ML IV SCH
[2024-02-07] MEDS ORDERED: NS 250 ML IV PRN (00:10)
--- NOTE | 2024-02-07 05:20 | NUR ---
Shift Summary REC'D PT FROM ED 2124 WITH BILATERAL PNU. PT WAS IN HOSPITAL FOR SAME DX 2 WKS AGO. SHE REPORTS SHE DID NOT FEEL BETTER AND STARTED FEELING WORSE WITH A FEVER TODAY. PT IS AA0X4. 2L O2 VIA NC, BASELINE IS RA. TELE ON, AFIB. SHE WEARS BRIEFS FOR STESS INCONTINENCE OF URINE. AMBULATES WITH WALKER OR SBA WITH NURSE. #20 TO RAC, RECIEVING CEFEPIME AND VANCO. STRICT I&O WITH 2,000ML Fluid restriction.
[2024-02-07 05:48] VITALS: BP 149/78
[2024-02-07] MEDS ORDERED: Vancomycin HCL 750 MG in NS 250 ML IV SCH (06:00)
[2024-02-07 06:12] LABS: Hemoglobin 14.2 g/dL (11.5-16.0); Mean Corpuscular HGB 22.4 pg (26.0-34.0); Mean Corpuscular HGB Conc 30.9 g/dL (31.5-36.5); Mean Corpuscular Volume 73 fL (80-100); Platelet Count 798 K/mm3 (150-400); RDW Coefficient Variation 18.6 % (11.7-14.2); RDW Standard Deviation 45.3 fL (35.1-46.3); Red Blood Cell Count 6.34 M/mm3 (3.80-5.20)
[2024-02-07 06:27] LABS: Albumin, Blood 1.9 g/dL (3.4-5.0); Albumin/Globulin Ratio 0.5 (0.8-1.8); Bilirubin, Total 0.5 mg/dL (0.1-1.0); Bun/Creatinine Ratio 19.5 (12.0-20.0); Calcium, Blood 8.9 mg/dL (8.5-10.1); Creatinine, Blood 0.56 mg/dL (0.40-1.00); Globulin, Blood 3.7 g/dL (2.2-4.0); Total Protein, Blood 5.6 g/dL (6.4-8.2)
[2024-02-07 07:27] VITALS: BP 138/82
[2024-02-07] MEDS ORDERED: Atorvastatin 10 MG Tab PO SCH (09:00)
[2024-02-07] MEDS ORDERED: Lisinopril 10 MG Tab PO SCH (09:00)
[2024-02-07] MEDS ORDERED: DOCU100 PO (10:16)
[2024-02-07] MEDS ORDERED: MIRALAX17 GM PO (10:17)
--- NOTE | 2024-02-07 16:25 | NUR ---
SHIFT SUMMARY: PATIENT A/OX3, FORGETFUL AT TIMES, BUT EASILY REDIRECTABLE. PATIENT DENIES CP/PRESSURE, SOB, N/V AND DIZZINESS. PATIENT ON TELE, A-FLUTTER HR IN THE LOW 100'S BPM BUT c AMBULATION TO BATHROOM GOES UP TO 120'S-130'S AND BACK TO LOW 100'S WHEN RESTING UP IN RECLINER CHAIR. PATIENT CURRENTLY ON 2L O2 VIA NC SATTING 94-96%, CONTINUES PULSE OX AT BEDSIDE AND HAS BEEN USING IS T/O SHIFT. PATIENT HAS GOOD APPETITE, 2L FR, CONTINENT/INCONTINENT OF BLADDER, ATTENDS IN PLACED AND AMBULATES TO BATHROOM c SBA/FWW T/O SHIFT. PATIENT HAD PT/OT EVAL TODAY, RECOMMENDING [facility]. PATIENT UP IN THE RECLINER CHAIR c BLE'S ELEVATED ON PILLOWS T/O SHIFT. VITAL SIGNS REVIEWED. CALL LIGHT IN REACH.
[2024-02-07 16:38] VITALS: BP 133/85
[2024-02-07] MEDS ORDERED: Metoprolol Tartrate 50 MG Tab PO SCH (21:00)
[2024-02-07 21:06] VITALS: BP 115/81
[2024-02-08 05:33] VITALS: BP 129/79
--- NOTE | 2024-02-08 07:34 | NUR ---
ao 3 , pt confused at times throughout night when waking, forgetful ati times when awake easily redirected and oriented. Tele Aflutter , tachy up to 140s with exertion, medication metoprolol administered , hr aflutter 70s on monitopr and tele report, o2 2 liters sats >90s. Assisted with toileting, repositoning , Vanco trough this am with no change to current orders. Fall precautions in place.
[2024-02-08 07:47] VITALS: BP 97/69
[2024-02-08 09:08] VITALS: BP 147/77
[2024-02-08] MEDS ORDERED: CEFD300 PO (13:40)
--- NOTE | 2024-02-08 14:56 | NUR ---
SHIFT/DISCHARGE SUMMARY: PATIENT HAS HAD NO NEW ACUTE CHANGES THIS SHIFT. PATIENT A/OX3, FORGETFUL AT TIMES, PLEASANT AND COOPERATIVE c CARE. PATIENT DENIES CP/PRESSURE, SOB, N/V AND DIZZINESS. PATIENT HAS HAD NO EVENT ON TELE, A-FLUTTER HR IN THE LOW 100 TO MID 110'S BPM. PATIENT RECEIVED SCHEDULED MEDS PER EMAR. PATIENT CURRENTLY ON 2L O2 AT BASELINE, SATTING 92%. PATIENT HAS GOOD APPETITE, CONTINENT OF BLADDER AND AMBULATES TO BATHROOM c SBA/FWW T/O SHIFT. PATIENT RECEIVED SCHEDULED MEDS PER EMAR. VITAL SIGNS REVIEWED. PIV TO RAC DC'D. PATIENT DISCHARGE HOME. DISCHARGE INSTRUCTIONS PACKET GIVEN TO PATIENT. EDUCATED PATIENT REGARDING ADMITTING DX'S OF FEVER, S/S, TX, SELF CARE, NEW RX AND TO F/U c PCP. PATIENT AND DAUGHTER AT BEDSIDE VERBALIZED UNDERSTANDING AND NO FURTHER QUESTIONS. RX WAS FAXED TO PATIENT PREFERRED PHARMACY-[facility]. ALL PATIENT PERSONAL BELONGINGS WERE SENT HOME c THE PATIENT. PATIENT LEFT THE ROOM AT 1455, TRANSPORTED VIA WHEELCHAIR BY SERVANDO CHEW TO PATIENT ENTRANCE.
== END 2024-02-08 15:10 | disposition home health service (06) | DRG 193 ==
LOC: ER 13:00 → MEDS 13:01
PROVIDERS: Physician Assistant; ADMIT Internal Medicine
DX: J18.9 Pneumonia, unspecified organism (principal); I50.33 Acute on chronic diastolic (congestive) heart failure; C90.00 Multiple myeloma not having achieved remission; I48.20 Chronic atrial fibrillation, unspecified; Z28.21 Immunization not carried out because of patient refusal; I11.0 Hypertensive heart disease with heart failure; M19.90 Unspecified osteoarthritis, unspecified site; G62.9 Polyneuropathy, unspecified; E78.5 Hyperlipidemia, unspecified; D75.838 Other thrombocytosis; Z96.651 Presence of right artificial knee joint; Z88.5 Allergy status to narcotic agent; Z86.73 Personal history of transient ischemic attack (TIA), and cerebral infarction without residual deficits; Z88.8 Allergy status to other drugs, medicaments and biological substances; Z79.899 Other long term (current) drug therapy; Z79.01 Long term (current) use of anticoagulants; Z98.890 Other specified postprocedural states
CPT/HCPCS: 0241U; 36415; 71046; 80053; 80202; 81001; 83605; 83880; 85025; 85027; 87086; 93005; 93010; 94762; 96365; 96366; 96367; 96375; 96376; 97110; 97116; 97162; 97165; 97535; 99285-25; A9270; G0378; J0692; J1940; J3370; J7030; J7040; J7050